=== PATIENT | female | born 1980 | race African-American/Black ===

== ENCOUNTER 2016-03-01 19:37 | Emergency (ER) | payer OTHER ==
[~2016-03-01] VITALS: Ht 180.3 cm; Wt 149.7 kg
--- NOTE | ~2016-03-01 | EKG ---
[address] [address] ELECTROCARDIOGRAM REPORT Name: JULIA YOUNG [facility] [id number] Admission: 03/01/16 Attend Phys: Discharge: 03/01/16 Date of : 76 Report #: [id number] THIS REPORT FOR: //name// [facility]ly [facility] ED Test Date: 2016-03-01 Test Time: 19:52:47 Pat Name: JULIA YOUNG Department: Room: Gender: F [employer]am Press Operator: PRAVIN : 1980 Requested By: Yoel Alvarez Order Number: [id number] MD: Bassam Luna Measurements Intervals [place] Rate: 94 P: 88 AK: 174 QRS: 66 QRSD: 89 T: 23 QT: 313 QTc: 392 Interpretive Statements Sinus rhythm Probable left atrial enlargement Compared to ECG 08/27/2015 12:54:24 No significant changes Electronically Signed On 03-02-2016 8:28:04 LOGISTICS MANAGER by Bassam Luna [email or web address] <ELECTRONICALLY SIGNED> By: Bassam Luna MD 03/02/16 0828 51 51 Bassam Luna MD /AMY
[~2016-03-01 19:37] MED LIST: ANTIVERT25 MG PO; APAP500 PO; BACTRIM DS TAB1 EACH PO; CYCLOBENZAPRINE5 MG PO; FLEXERIL PO; IBUPROFEN 200200 M1 PO; IBUPROFEN 800800 M1 PO; IMITREX 50 MG T50 MG PO; MOBIC15 MG PO; NOHOMEMEDICATIONS; NORCO 5-325 TA1 EACH PO; PHENERGAN 25 MG25 M1 PO; PHENTERMINE H37.5 MG PO; TRAMADOL 50 MG50 MG PO; ULTRAM 50MG TAB50 MG PO; ZOFRAN ODT4 MG PO
[2016-03-01] MEDS ORDERED: VITAMIN B-12500 MCG PO (20:04)
[2016-03-01 20:16] LABS: ABSOLUTE NEUTROPHILS 4.3 thou/uL (1.4-8.2); BASOPHILS 1.3 % (0.0-2.0); EOSINOPHILS 3.5 % (0.0-3.0); HEMATOCRIT 37.5 % (37.0-47.0); HEMOGLOBIN 12.8 gm/dL (12.0-15.0); LYMPHOCYTES 37.6 % (24.0-44.0); MCH 27.3 pg (26.0-34.0); MCV 80.1 fL (80.0-100.0); MONOCYTES 8.5 % (1.0-8.0); PLATELET COUNT 309 thou/uL (150-400); POLYS 49.1 % (36.0-66.0); RBC 4.68 mil/uL (4.20-5.00); WBC 8.9 thou/uL (4.0-11.0)
[2016-03-01 20:29] LABS: MANUAL DIFF NO
[2016-03-01 20:39] LABS: CALCIUM 8.6 mg/dL (8.5-10.1); CREATININE 0.9 mg/dL (0.6-1.3); POTASSIUM 3.7 mmol/L (3.5-5.1)
[2016-03-01 20:45] LABS: ALBUMIN 3.2 g/dL (3.4-5.0); TOTAL BILIRUBIN 0.3 mg/dL (<0.1-1.0); TOTAL PROTEIN 8.2 g/dL (6.4-8.2)
[2016-03-01] MEDS ORDERED: TORADOL 10 MG T10 MG PO (20:57)
== END 2016-03-01 21:26 | disposition home or self-care (01) ==
LOC: ER 19:37
PROVIDERS: Emergency Medicine
DX: R00.2 Palpitations (principal); F10.99 Alcohol use, unspecified with unspecified alcohol-induced disorder

== ENCOUNTER → 2016-06-23 | Outpatient (CLI) | payer OTHER ==
[~2016-06-23] MED LIST changes: +TORADOL 10 MG T10 MG PO; +VITAMIN B-12500 MCG PO
== END ==
LOC: RAD 11:30
DX: Z12.31 Encounter for screening mammogram for malignant neoplasm of breast (principal)

== ENCOUNTER → 2016-07-12 | Outpatient (CLI) | payer OTHER | LOC: ULTRA 08:10 | DX: N63 Unspecified lump in breast (principal) ==

== ENCOUNTER 2016-08-08 18:10 | Emergency (ER) | payer OTHER ==
[~2016-08-08] VITALS: Ht 180.3 cm; Wt 149.7 kg
[2016-08-08] MEDS ORDERED: CLEOCIN HCL150 MG (18:18)
[2016-08-08] MEDS ORDERED: ADIPEX-P37.5 MG PO (18:18)
[2016-08-08] MEDS ORDERED: IBUPROFEN 600600 M1 PO (18:43)
== END 2016-08-08 18:55 | disposition home or self-care (01) ==
LOC: ER 18:10
DX: S00.93XA Contusion of unspecified part of head, initial encounter (principal); E66.01 Morbid (severe) obesity due to excess calories; E78.00 Pure hypercholesterolemia, unspecified; F10.99 Alcohol use, unspecified with unspecified alcohol-induced disorder; W22.8XXA Striking against or struck by other objects, initial encounter; Y93.89 Activity, other specified; Y92.89 Other specified places as the place of occurrence of the external cause; Y99.8 Other external cause status

== ENCOUNTER 2017-04-01 18:45 | Emergency (ER) | payer OTHER ==
[~2017-04-01] VITALS: Ht 180.3 cm; Wt 152.0 kg
[~2017-04-01 18:45] MED LIST changes: +ADIPEX-P37.5 MG PO; +CLEOCIN HCL150 MG; +IBUPROFEN 600600 M1 PO
[2017-04-01] MEDS ORDERED: IBUPROFEN 800800 MG PO (19:55)
[2017-04-01] MEDS ORDERED: TRAMADOL 50 MG50 MG PO (19:55)
[2017-04-01 20:32] VITALS: BP 148/95
== END 2017-04-01 20:33 | disposition home or self-care (01) ==
LOC: ER 18:45
DX: S80.02XA Contusion of left knee, initial encounter (principal); E78.00 Pure hypercholesterolemia, unspecified; E66.01 Morbid (severe) obesity due to excess calories; Z68.42 Body mass index [BMI] 45.0-49.9, adult; W01.0XXA Fall on same level from slipping, tripping and stumbling without subsequent striking against object, initial encounter; Y93.89 Activity, other specified; Y92.89 Other specified places as the place of occurrence of the external cause; Y99.8 Other external cause status

== ENCOUNTER → 2017-08-28 | Outpatient (CLI) | payer OTHER ==
[~2017-08-28] MED LIST changes: +IBUPROFEN 800800 MG PO
== END ==
LOC: RAD 01:26
DX: Z12.31 Encounter for screening mammogram for malignant neoplasm of breast (principal)

== ENCOUNTER 2017-12-09 23:37 | Emergency (ER) | payer OTHER ==
[~2017-12-09] VITALS: Ht 180.3 cm; Wt 147.4 kg
[2017-12-10] MEDS ORDERED: NORFLEX100 MG PO (01:06)
[2017-12-10] MEDS ORDERED: NAPROSYN500 MG PO (01:06)
== END 2017-12-10 01:24 | disposition home or self-care (01) ==
LOC: ER 23:37
DX: S46.811A Strain of other muscles, fascia and tendons at shoulder and upper arm level, right arm, initial encounter (principal); S39.012A Strain of muscle, fascia and tendon of lower back, initial encounter; M43.6 Torticollis; E78.00 Pure hypercholesterolemia, unspecified; E66.01 Morbid (severe) obesity due to excess calories; Z68.42 Body mass index [BMI] 45.0-49.9, adult; W18.39XA Other fall on same level, initial encounter; Y93.89 Activity, other specified; Y92.89 Other specified places as the place of occurrence of the external cause; Y99.8 Other external cause status

== ENCOUNTER 2018-08-16 09:37 | Emergency (ER) | payer OTHER ==
[~2018-08-16] VITALS: Ht 180.3 cm; Wt 149.7 kg
[~2018-08-16 09:37] MED LIST changes: -MOBIC7.5 MG PO
[2018-08-16 09:38] VITALS: BP 134/86
[2018-08-16] MEDS ORDERED: MOBIC7.5 MG PO (10:48)
== END 2018-08-16 10:54 | disposition home or self-care (01) ==
LOC: ER 09:37
DX: S86.812A Strain of other muscle(s) and tendon(s) at lower leg level, left leg, initial encounter (principal); M25.462 Effusion, left knee; E78.00 Pure hypercholesterolemia, unspecified; E66.01 Morbid (severe) obesity due to excess calories; Z68.41 Body mass index [BMI] 40.0-44.9, adult; X50.3XXA Overexertion from repetitive movements, initial encounter; Y93.89 Activity, other specified; Y92.89 Other specified places as the place of occurrence of the external cause; Y99.8 Other external cause status

== ENCOUNTER → 2018-08-16 | Outpatient (CLI) | payer OTHER ==
[~2018-08-16] MED LIST changes: +MOBIC7.5 MG PO; +NAPROSYN500 MG PO; +NORFLEX100 MG PO
== END ==
LOC: RAD 11:45
DX: Z12.31 Encounter for screening mammogram for malignant neoplasm of breast (principal)

== ENCOUNTER 2019-04-30 14:07 | Emergency (ER) | payer OTHER ==
[~2019-04-30] VITALS: Ht 180.3 cm; Wt 150.4 kg
[~2019-04-30 14:07] MED LIST changes: +MOBIC7.5 MG PO
[2019-04-30] MEDS ORDERED: BUTALB-APAP-CA1 EACH PO ×3 (15:29→15:34)
[2019-04-30 15:34] VITALS: BP 146/90
[2019-04-30] MEDS ORDERED: NORCO 5-325 TA1 EAC1 PO (15:44)
== END 2019-04-30 15:48 | disposition home or self-care (01) ==
LOC: ER 14:07
DX: S93.401A Sprain of unspecified ligament of right ankle, initial encounter (principal); S09.90XA Unspecified injury of head, initial encounter; E78.00 Pure hypercholesterolemia, unspecified; W22.8XXA Striking against or struck by other objects, initial encounter; Y93.89 Activity, other specified; Y92.89 Other specified places as the place of occurrence of the external cause; Y99.8 Other external cause status

== ENCOUNTER 2020-02-11 20:39 | Emergency (ER) | payer OTHER ==
[~2020-02-11] VITALS: Ht 180.3 cm; Wt 138.8 kg
[~2020-02-11 20:39] MED LIST changes: +BUTALB-APAP-CA1 EACH PO; +NORCO 5-325 TA1 EAC1 PO
[2020-02-11] MEDS ORDERED: MELODETTA 24 F1 EACH PO (20:55)
[2020-02-11] MEDS ORDERED: NAPROSYN500 M1 PO (22:48)
[2020-02-11 23:32] VITALS: BP 166/104
== END 2020-02-11 23:33 | disposition home or self-care (01) ==
LOC: ER 20:39
DX: S90.121A Contusion of right lesser toe(s) without damage to nail, initial encounter (principal); E66.01 Morbid (severe) obesity due to excess calories; E78.00 Pure hypercholesterolemia, unspecified; Z68.41 Body mass index [BMI] 40.0-44.9, adult; Z79.899 Other long term (current) drug therapy; W22.8XXA Striking against or struck by other objects, initial encounter; Y93.89 Activity, other specified; Y92.89 Other specified places as the place of occurrence of the external cause; Y99.8 Other external cause status